=== PATIENT | female | born 1995 | race Caucasian/White ===

== ENCOUNTER 2018-01-15 19:41 | Emergency (ER) | payer OTHER ==
[2018-01-15] MEDS: IBUPROFEN 600 MG TAB PO (23:14)
[2018-01-15] MEDS: DEXAMETHASONE 10 MG/ML 1 ML INJ PO (23:14)
== END 2018-01-15 23:23 | disposition home or self-care (01) ==
LOC: FTE 23:23
DX: J02.9 Acute pharyngitis, unspecified (principal)
CPT/HCPCS: 99283; J1100

== ENCOUNTER 2018-03-01 12:29 | Emergency (ER) | payer OTHER ==
[2018-03-01] MEDS: IBUPROFEN 800 MG TAB PO (14:32)
== END 2018-03-01 15:07 | disposition home or self-care (01) ==
LOC: FTE 12:29
DX: S99.912A Unspecified injury of left ankle, initial encounter (principal); J45.909 Unspecified asthma, uncomplicated; W01.0XXA Fall on same level from slipping, tripping and stumbling without subsequent striking against object, initial encounter; Y92.9 Unspecified place or not applicable
CPT/HCPCS: 73610; 99283-25

== ENCOUNTER 2018-03-04 23:02 | Emergency (ER) | payer SELFPAY, OTHER | END 2018-03-05 00:48 | disposition left against medical advice (07) | LOC: FTE 23:02 | DX: Z53.21 Procedure and treatment not carried out due to patient leaving prior to being seen by health care provider (principal) ==

== ENCOUNTER 2018-06-22 18:51 | Emergency (ER) | payer OTHER | END 2018-06-23 07:13 | disposition left against medical advice (07) | LOC: FTE 06-23 07:13 | DX: J02.9 Acute pharyngitis, unspecified (principal); J06.9 Acute upper respiratory infection, unspecified | CPT/HCPCS: 87880; 99283 ==